=== PATIENT | male | born 1965 | race Caucasian/White ===

== ENCOUNTER 2021-07-10 09:31 | Emergency (ER) | payer OTHER ==
[~2021-07-10] VITALS: Ht 170.2 cm; Wt 71.7 kg
--- NOTE | 2021-07-10 09:42 | NUR ---
The patient alex, from home, c/o chest sharp pain 11/03, non-radiating, was at the other hospital yesterday for same reason. In room air and denies SOB. Respiration regular and unlabored. Attached to the monitor.
--- NOTE | 2021-07-10 09:53 | NUR ---
STARTED IV LINE, BLOOD SPECIMEN COLLECTED AND SENT TO THE LAB. THE LINE IS SALINE LOCKED.
[2021-07-10 09:56] LABS: BASOPHILS % (AUTO) 0.1 % (0.0-2.0); EOSINOPHILS % (AUTO) 0.5 % (0.0-6.0); HEMATOCRIT 29 % (39-51); HEMOGLOBIN 9.8 g/dL (13.5-17.5); LYMPHOCYTES # (AUTO) 1.8 K/uL (0.8-4.8); LYMPHOCYTES % (AUTO) 23.4 % (20.0-44.0); MEAN CORPUSCULAR HGB CONC 34 g/dl (31.0-36.0); MEAN CORPUSCULAR VOLUME 117 fL (80-96); MONOCYTES # (AUTO) 0.4 K/uL (0.1-1.30); MONOCYTES % (AUTO) 5.4 % (2.0-12.0); NEUTROPHILS # (AUTO) 5.5 K/uL (1.8-8.9); NEUTROPHILS % (AUTO) 70.6 % (43.0-81.0); PLATELET COUNT (AUTO) 359 K/uL (150-450); RED BLOOD CELL COUNT(AUTO) 2.45 MIL/uL (4.5-6.0); WHITE BLOOD COUNT (AUTO) 7.8 K/uL (4.3-11.0)
--- NOTE | 2021-07-10 09:58 | NUR ---
x-ray tech at the bedside
--- NOTE | 2021-07-10 11:11 | NUR ---
covid swab done and sent to the lab
--- NOTE | 2021-07-10 11:13 | NUR ---
Patient Tranfers to outside Facility Govind BUSTAMANTE Physician:Dr. Hess [facility] Location:room [address]-A roberto report [phone]
--- NOTE | 2021-07-10 11:27 | NUR ---
AMBULANCE INFO [facility] WILL BE PICKING UP THE PATIENT IN 90 MINUTES. ANA CALL BACK NUMBER [phone].
[2021-07-10] MEDS ORDERED: NITROGLYCERIN PACKET 1 GM PACKET TD ONE (11:30)
[2021-07-10] MEDS ORDERED: ASPIRIN 325 MG TABLET PO ONE (11:30)
[2021-07-10] MEDS ORDERED: NITROGLYCERIN PACKET 1 GM PACKET ONE (11:40)
[2021-07-10] MEDS ORDERED: ASPIRIN EC 325 MG TABLET.DR PO ONE (11:40)
[2021-07-10 11:44] LABS: CALCIUM, SERUM 7.8 mg/dL (8.5-10.1); CARBON DIOXIDE 28 mmol/L (21-32); CHLORIDE 100 mmol/L (98-107); CREATININE 0.8 mg/dL (0.6-1.3); GLUCOSE 73 mg/dL (74-106); POTASSIUM 4.9 mmol/L (3.5-5.1); SODIUM SERUM 137 mmol/L (136-145); UREA NITROGEN, BLOOD 10 mg/dL (7-18)
--- NOTE | 2021-07-10 12:11 | NUR ---
Report given to nurse Arreola from [facility]
--- NOTE | 2021-07-10 14:51 | NUR ---
patient didn't want to be transferred to another hospital, refused to sign ama form
[2021-07-10 14:53] VITALS: BP 115/68
[2021-07-10 15:36] LABS: ALANINE AMINOTRANSFERASE 46 U/L (12-78); ALBUMIN 3.3 g/dL (3.4-5.0); ALKALINE PHOSPHATASE 118 U/L (46-116); ASPARTATE AMINOTRANSFERASE 70 U/L (15-37); BILIRUBIN,DIRECT 0.2 mg/dL (0.0-0.2); BILIRUBIN,TOTAL 1.1 mg/dL (0.2-1.0); TOTAL PROTEIN, SERUM 6.4 g/dL (6.4-8.2)
== END 2021-07-10 14:54 | disposition left against medical advice (07) ==
LOC: ER 09:37
DX: R07.9 Chest pain, unspecified (principal); Z20.822 Contact with and (suspected) exposure to COVID-19; Z53.29 Procedure and treatment not carried out because of patient's decision for other reasons; I11.9 Hypertensive heart disease without heart failure; D64.9 Anemia, unspecified; M13.0 Polyarthritis, unspecified
CPT/HCPCS: 36415; 71045; 80048; 80076; 84484; 85025; 87426; 93005; 99285; C9803